=== PATIENT | male | born 1980 | race Caucasian/White ===

== ENCOUNTER 2019-08-14 11:33 | Emergency (ER) | payer OTHER ==
[~2019-08-14] VITALS: Ht 175.3 cm; Wt 84.1 kg
[2019-08-14 13:09] LABS: BASOPHILS 0.3 % (0-2); EOSINOPHILS 0.6 % (0-7); HEMOGLOBIN 16.8 g/dL (13.5-17.5); IMMATURE GRANULOCYTES 0.5 % (0-5); LYMPHOCYTES 14.4 % (15-50); MCH 30.1 pg (26.0-34.0); MEAN PLATELET VOLUME 9.7 fL (7.4-10.4); NEUTROPHILS 76.2 % (40-80); PLATELET COUNT 253 10x3/uL (130-400); RBC 5.58 10x6/uL (4.20-6.10); RDW 12.6 % (11.5-14.5); WBC 11.7 10x3/uL (4.8-10.8)
[2019-08-14 13:21] LABS: PROTIME 13.2 SECONDS (11.6-15.0)
[2019-08-14 13:22] LABS: APTT 26.7 SECONDS (22.8-39.4)
[2019-08-14 13:27] LABS: CALC OSMOLALITY 285 mosm/kg (275-300); CALCIUM 9.2 mg/dL (8.5-10.1); CHLORIDE - SERUM 103 mmol/L (98-107); GLUCOSE 93 mg/dL (74-106); POTASSIUM - SERUM 4.2 mmol/L (3.5-5.1); SODIUM 142 mmol/L (136-145); UREA NITROGEN 20 mg/dL (7-18); eGFR NON AFRICAN AMERICAN 88 mL/min (90-120)
[2019-08-14 13:32] LABS: ALBUMIN 4.4 g/dL (3.4-5.0); ALKALINE PHOSPHATASE 104 U/L (46-116); ALT (SGPT) 42 U/L (10-68); BILIRUBIN - TOTAL 1.51 mg/dL (0.2-1.3); PROTEIN - SERUM 7.9 g/dL (6.4-8.2)
[2019-08-14] MEDS ORDERED: PROCTOFOAM-HC 110 GM RC (14:17)
[2019-08-14 15:00] VITALS: BP 146/89
[2019-08-14 15:36] VITALS: Ht 175.3 cm; Wt 84.1 kg
== END 2019-08-14 15:01 | disposition home or self-care (01) ==
LOC: D.ER 11:33
PROVIDERS: Family Medicine
DX: K64.5 Perianal venous thrombosis (principal)